=== PATIENT | male | born 1950 | race American Indian/Alaskan Native ===

== ENCOUNTER 2016-08-24 00:37 | Emergency (ER) | payer OTHER ==
[2016-08-24 04:12] LABS: Bilirubin,Urine NEG (Negative); Blood,Urine NEG (Negative); Ketones,Urine NEG (Negative); Leukocyte Esterase,Urine NEG (Negative); Nitrite,Urine NEG (Negative); Urobilinogen,Urine < 2.0 mg/dL (<2.0); WBC,Urine < 1.0 /HPF (0.0-6.0)
--- NOTE | 2016-08-24 11:54 | Emergency Department Report ---
ED Male HPI - General Chief complaint: Urogenital-Male Stated complaint: FREQUENT URINATION Time Seen by Provider: 08/24/16 11:27 Source: patient, EMS Mode of arrival: Ambulatory Limitations: No Limitations - History of Present Illness Initial comments: 65-year-old male presents to the emergency department complaining of urinary frequency. Patient states he's been having the symptoms for approximately one month. Patient saw his primary care physician and was started on an alpha aurora and oxybutynin. He states this is not helping. 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 He states he feels like he needs to urinate every 20 minutes. Patient states he just finished an assignment and is awaiting a new assignment. He is unsure when he will return to [place] where his primary care physician is. There are no other complaints. -: Gradual, month(s) (1) Severity: mild Severity scale (0 -10): 0 Improves with: none Worsens with: none denies other symptoms - Related Data Previous Rx's Medication Instructions Recorded Last Taken Type Tolterodine [Detrol LA] 2 mg PO QDAY #30 capsule 08/24/16 Unknown Rx Allergies Allergy/AdvReac Type Severity Reaction Status Date / Time No Known Allergies Allergy Unverified 08/24/16 00:56 ED Review of Systems ROS: Stated complaint: FREQUENT URINATION Other details as noted in HPI Comment: All other systems reviewed and negative Genitourinary: frequency. denies: urgency, dysuria, hematuria ED Past Medical Hx - Past Medical History Previous Medical History?: Yes Hx Hypertension: Yes - Surgical History Past Surgical History?: No - Family History Family history: no significant - Social History Smoking Status: Never Smoker Substance Use Type: None - Medications Home Medications: Home Medications Medication Instructions Recorded Confirmed Last Taken Type Tolterodine [Detrol LA] 2 mg PO QDAY #30 capsule 08/24/16 Unknown Rx ED Physical Exam - General Limitations: No Limitations General appearance: alert, in no apparent distress - Head Head exam: Present: atraumatic, normocephalic - Eye Eye exam: Present: normal appearance, PERRL, EOMI - ENT ENT exam: Present: normal exam, normal orophraynx, mucous membranes moist - Neck Neck exam: Present: normal inspection, full ROM. Absent: tenderness - Respiratory Respiratory exam: Present: normal lung sounds bilaterally. Absent: respiratory distress - Cardiovascular Cardiovascular Exam: Present: regular rate, normal rhythm, normal heart sounds - GI/Abdominal GI/Abdominal exam: Present: soft, normal bowel sounds. Absent: distended, tenderness - Extremities Exam Extremities exam: Present: normal inspection, full ROM. Absent: tenderness - Back Exam Back exam: Present: normal inspection, full ROM. Absent: tenderness - Neurological Exam Neurological exam: Present: alert, oriented X3. Absent: motor sensory deficit - Skin Skin exam: Present: warm, dry, intact ED Course Vital Signs 08/24/16 08/24/16 00:56 04:37 Temperature 98.4 F 97.6 F Pulse Rate 60 51 L Respiratory 18 18 Rate Blood Pressure 135/92 152/93 O2 Sat by Pulse 98 96 Oximetry ED Medical Decision Making - Medical Decision Making Lab results reviewed and discussed with the patient. There is no sign of diabetes or urinary tract infection. Symptoms are consistent with overactive bladder. Patient has not responded to prostate-specific therapy. Treatment with anti-muscarinic agents will be attempted. Patient will be discharged to follow-up with his primary care physician as soon as possible for possible urology referral. - Differential Diagnosis hyperglycemia, UTI, overactive bladder Critical care attestation.: If time is entered above; I have spent that time in minutes in the direct care of this critically ill patient, excluding procedure time. ED Disposition Clinical Impression: Overactive bladder Disposition: DISCHARGED TO HOME OR SELFCARE Is pt being admited?: No Condition: Stable Instructions: Overactive Bladder (GEN) Prescriptions: Tolterodine [Detrol LA] 2 mg PO QDAY #30 capsule Referrals: PRIMARY CARE, [Primary Care Provider] - 3-5 Days Time of Disposition: 11:56
[2016-08-24 12:00] VITALS: BP 156/92
== END 2016-08-24 12:05 | disposition home or self-care (01) ==
LOC: ED 00:37
DX: N32.81 Overactive bladder (principal); I10 Essential (primary) hypertension
CPT/HCPCS: 81001; 82962; 99283